=== PATIENT | male | born 1945 | race Two or more races ===

== ENCOUNTER → 2021-03-25 | Day surgery (SDC) | payer BC ==
[~2021-03-25] VITALS: Ht 160 cm; Wt 193.0 kg
[~2021-03-25] MED LIST: AMLO-187 PO; ATOR80TA72 PO; FINA5TAB4 PO; INSU100V31 SQ; INSU100V8 SQ; IV RINGERS,LACTATED 1000ML 1,000 ML IV SCH; LEVO88TA56 PO; LIDOCAINE 2% PF 5 ML VIAL. ONE; METF10007 PO; METO50TA4 PO; PANT20TA2 PO; PROPOFOL 10 MG/ML (20ML) VIAL. IV ONE; TAMS0.4C97 PO
[2021-03-25 07:17] VITALS: BP 151/62
[2021-03-25 08:47] VITALS: BP 125/57
--- NOTE | 2021-03-27 14:10 | PATHOLOGY ---
[facility] Accession Number: [id number] . 01 Material submitted: . ANTURM - ANTRUM BIOPSY . 01 Clinical history: . NAUSEA EGD . 02 Diagnosis: Gastric biopsies, antrum: - Chronic gastritis, mild to moderate, with extensive intestinal metaplasia. . (JP:mm; 03/27/2021) [facility] 03/27/2021 0940 Local . 02 Comment: Sections of the gastric antral biopsy reveal segments of gastric antral and antral/body transition mucosa showing congestion and mild to moderate chronic inflammation with extensive intestinal metaplasia. A properly-controlled immunoperoxidase stain for Helicobacter is negative for Helicobacter organisms. There is no dysplasia or evidence of malignancy. . (JPM:mml; 03/27/2021) . 02 Electronically signed: . Donald Hogan MD, Pathologist NPI- [id number] . 01 Gross description: . The specimen is received in formalin, labeled "Juares, Ehsan", "antrum biopsy". Received are multiple segments of pale edwards soft tissue ranging in size from 0.2 cm to 0.3 cm. The specimen is entirely submitted in cassette A1.(SNA; 03/26/2021) [facility] 03/26/2021 0829 Local . 02 Pathologist provided ICD-10: K29.50 . 02 CPT . [id number], [id number] Specimen Comment: A courtesy copy of this report has been sent to [phone] Specimen Comment: Report sent to Performed at: 01 [facility] [address], [place], [place] [id number] MD Dimitris Rodriguez MD Phone: [phone] Performed at: 02 [facility] [address], [place] [id number] MD Donald Hogan MD Phone: [phone]
== END | disposition home or self-care (01) ==
LOC: SURG 06:16
PROVIDERS: ATTEND Internal Medicine Gastroenterology
DX: R10.13 Epigastric pain (principal); R11.0 Nausea; K29.50 Unspecified chronic gastritis without bleeding; K31.89 Other diseases of stomach and duodenum; E78.00 Pure hypercholesterolemia, unspecified; E11.9 Type 2 diabetes mellitus without complications; E03.9 Hypothyroidism, unspecified; I10 Essential (primary) hypertension; N40.0 Benign prostatic hyperplasia without lower urinary tract symptoms; M19.90 Unspecified osteoarthritis, unspecified site; Z79.4 Long term (current) use of insulin; Z79.899 Other long term (current) drug therapy; Z90.49 Acquired absence of other specified parts of digestive tract; Z98.890 Other specified postprocedural states
CPT/HCPCS: 43239; 82962; J2704